=== PATIENT | male | born 1985 | race African-American/Black ===

== ENCOUNTER 2020-02-25 06:47 | Outpatient (NON) | payer BC, SELFPAY ==
[2020-02-25 23:31] LABS: SARS-CoV-2 RNA PCR Negative
== END 2020-02-25 06:48 ==
PROVIDERS: PCP Family Medicine; Visit Provider Family Medicine
DX: Z20.828 Contact with and (suspected) exposure to other viral communicable diseases (principal); R09.89 Other specified symptoms and signs involving the circulatory and respiratory systems
CPT/HCPCS: 87635; C9803; U0003

== ENCOUNTER 2020-05-25 15:01 | Outpatient (CLI) | payer BC, SELFPAY | END 2020-05-25 15:02 | disposition home or self-care (01) | LOC: ANHCOVIDVC 15:01 | PROVIDERS: PCP Family Medicine | DX: Z23 Encounter for immunization (principal) | CPT/HCPCS: 0001A; 91300 ==

== ENCOUNTER 2020-06-15 14:56 | Outpatient (CLI) | payer BC, SELFPAY | END 2020-06-15 14:57 | disposition home or self-care (01) | LOC: ANHCOVIDVC 14:56 | PROVIDERS: PCP Family Medicine | DX: Z23 Encounter for immunization (principal) | CPT/HCPCS: 0002A; 91300 ==